=== PATIENT | male | born 1995 | race Caucasian/White ===

== ENCOUNTER 2016-12-17 13:56 | Emergency (ER) | payer BC, OTHER ==
[~2016-12-17] VITALS: Ht 157.5 cm; Wt 79.6 kg
[2016-12-17 17:39] VITALS: BP 138/64
== END 2016-12-17 17:30 | disposition home or self-care (01) ==
LOC: EME 13:56 → RME 13:56
PROC: 0RSXXZZ Reposition Left Finger Phalangeal Joint, External Approach (ICD-10-PCS; principal; 2016-12-17)
DX: S63.281A Dislocation of proximal interphalangeal joint of left index finger, initial encounter (principal); V00.321A Fall from snow-skis, initial encounter; Y92.838 Other recreation area as the place of occurrence of the external cause; Y93.23 Activity, snow (alpine) (downhill) skiing, snowboarding, sledding, tobogganing and snow tubing; Y99.8 Other external cause status
CPT/HCPCS: 73140; 99281; 99284; S0020